=== PATIENT | female | born 1990 | race Caucasian/White ===

== ENCOUNTER 2023-05-17 05:50 | Day surgery (SDC) | payer MEDICAID ==
[~2023-05-17] VITALS: Ht 167.6 cm; Wt 122.5 kg
[2023-05-17 07:24] LABS: BASOPHILS % (AUTO) 0.5 % (0.0-2.0); EOSINOPHILS # (AUTO) 0.1 K/uL (0-0.4); HEMATOCRIT 37.2 % (36-48); HEMOGLOBIN 12.8 g/dL (12.0-16.0); LYMPHOCYTES # (AUTO) 2.4 K/uL (2.5-16.5); LYMPHOCYTES % (AUTO) 36.4 % (20.5-51.1); MEAN CORPUSCULAR HEMOGLOBIN 30 pg (27-31); MEAN CORPUSCULAR HGB CONC 34 g/dL (33-37); MEAN CORPUSCULAR VOLUME 86.3 fL (80-94); MONOCYTES # (AUTO) 0.5 K/uL (0.8-1.0); MONOCYTES % (AUTO) 7.4 % (1.7-9.3); NEUTROPHILS # (AUTO) 3.5 K/uL (1.8-7.7); NEUTROPHILS % (AUTO) 53.7 % (42.2-75.2); PLATELET COUNT (AUTO) 267 K/uL (140-450); RED BLOOD CELL COUNT(AUTO) 4.31 MIL/uL (4.20-5.40); RED CELL DISTRIBUTION WIDTH 13.9 % (11.6-13.7); WHITE BLOOD COUNT (AUTO) 6.5 K/uL (4.8-10.8)
[2023-05-17] MEDS ORDERED: fentaNYL citrate 0.05 MG/ML VIAL ONE (07:39)
[2023-05-17] MEDS ORDERED: MIDAZOLAM 2 MG/2 ML VIAL ONE (07:39)
[2023-05-17] MEDS ORDERED: PROPOFOL 200 MG/20 ML VIAL IV ONE (07:40)
[2023-05-17] MEDS ORDERED: DEXAMETHASONE 4 MG/ML VIAL ONE (07:40)
[2023-05-17] MEDS ORDERED: ONDANSETRON 4 MG/2 ML VIAL ONE (07:40)
[2023-05-17] MEDS ORDERED: SUCCINYLCHOLINE CHLORIDE 200 MG/10 ML VIAL IVP ONE (07:40)
[2023-05-17] MEDS ORDERED: ROCURONIUM 50 MG/5 ML VIAL IV ONE (07:40)
[2023-05-17] MEDS ORDERED: LACTATED RINGERS 1,000 ML IV SCH (07:50)
[2023-05-17] MEDS ORDERED: ONDANSETRON 4 MG/2 ML VIAL IVP PRN (07:50)
[2023-05-17] MEDS ORDERED: diphenhydrAMINE 50 MG/ML VIAL IVP PRN (07:50)
[2023-05-17] MEDS ORDERED: LIDOCAINE/EPI 1% 1:100000 20 ML VIAL INJ ONE (07:50)
[2023-05-17] MEDS ORDERED: MEPERIDINE 25 MG/ML SYR IVP PRN (07:50)
[2023-05-17] MEDS ORDERED: BUPIVACAINE MPF 0.25% 10 ML VIAL INJ ONE (07:51)
[2023-05-17 07:55] LABS: ANION GAP 16.8 (8-16); CARBON DIOXIDE 24.4 mmol/L (21-32); CREATININE 0.6 mg/dL (0.6-1.3); POTASSIUM 4.2 mmol/L (3.5-5.1)
[2023-05-17 08:05] LABS: ALBUMIN 3.4 g/dL (3.4-5.0); TOTAL PROTEIN, SERUM 7.7 g/dL (6.4-8.2)
[2023-05-17] MEDS ORDERED: DESFLURANE 240 ML BTL INH ONE (08:21)
[2023-05-17] MEDS ORDERED: MORPHINE SULFATE 4 MG/ML SYR ONE (08:35)
[2023-05-17] MEDS ORDERED: ceFAZolin 2,000 MG VIAL ONE (08:39)
[2023-05-17] MEDS ORDERED: ceFAZolin 1,000 MG VIAL ONE ×2 (08:39)
[2023-05-17] MEDS ORDERED: GLYCOPYRROLATE 0.2 MG/ML VIAL ONE ×2 (09:08)
[2023-05-17] MEDS ORDERED: NEOSTIGMINE 1:1000 10 MG/10 ML VIAL ONE (09:08)
[2023-05-17] MEDS ORDERED: HYDROmorphone PFS 2 MG/ML SYR ONE (09:23)
[2023-05-17] MEDS: HYDROmorphone 1 MG/ML AMP IVP PRN ×3 (09:25→09:45)
[2023-05-17 10:03] LABS: TOTAL BILIRUBIN 0.1 mg/dL (0.0-1.0)
[2023-05-17] MEDS ORDERED: KETOROLAC 30 MG/ML VIAL IVP ONE (12:05)
[2023-05-17] MEDS ORDERED: KETOROLAC 30 MG/ML VIAL IVP SCH (12:59)
== END 2023-05-17 14:30 | disposition home or self-care (01) ==
LOC: MDS 05:50 → MMU 06:29 → MDS 14:30
PROVIDERS: ATTEND Obstetrics & Gynecology
DX: D27.1 Benign neoplasm of left ovary (principal); E66.01 Morbid (severe) obesity due to excess calories; Z68.41 Body mass index [BMI] 40.0-44.9, adult
CPT/HCPCS: 36415; 58925; 80053; 85025; 88307; J0330; J0690; J1100; J1170; J1885; J2001; J2250; J2270; J2405; J2704; J2710; J3010; J3490